=== PATIENT | female | born 1945 | race Caucasian/White ===

== ENCOUNTER 2021-07-21 12:39 | Emergency (ER) | payer OTHER ==
[~2021-07-21] VITALS: Ht 162.6 cm; Wt 72.6 kg
[2021-07-21] MEDS ORDERED: NAPROSYN500 M1 PO (16:29)
[2021-07-21 17:01] VITALS: BP 150/64
== END 2021-07-21 17:01 | disposition home or self-care (01) ==
LOC: ER 12:39
DX: M25.462 Effusion, left knee (principal); I10 Essential (primary) hypertension; Z88.0 Allergy status to penicillin

== ENCOUNTER → 2021-07-31 | Outpatient (CLI) | payer OTHER ==
[~2021-07-31] MED LIST: ALENDRONATE SOD70 MG PO; ASA81BEC PO; BENTYL 10 MG CA10 M1 PO; DILT-XR120 MG PO; LOSARTAN POTAS100 MG PO; NAPROSYN500 M1 PO; NEBIVOLOL HCL20 MG PO; SINGULAIR 10 MG10 M1 PO; ZOCOR 20 MG TAB20 M1 PO
[2021-07-31 12:11] LABS: URINE BILIRUBIN NEGATIVE (Negative); URINE BLOOD 1+ (Negative); URINE CLARITY CLEAR; URINE COLOR YELLOW; URINE GLUCOSE-RANDOM* NEGATIVE (Negative); URINE KETONES NEGATIVE (Negative); URINE LEUKOCYTES-REFLEX NEGATIVE (Negative); URINE NITRITE-REFLEX NEGATIVE (Negative); URINE PROTEIN (DIPSTICK) NEGATIVE (Negative); URINE SPECIFIC GRAVITY <= 1.005 (1.005-1.035); URINE UROBILINOGEN 0.2 E.U./dl (0.2-1.0)
[2021-07-31 12:22] LABS: BACTERIA-REFLEX 1-9 Few /HPF (None Seen); CASTS None Seen /LPF (None Seen); CRYSTALS None Seen /LPF (None Seen); SQUAMOUS 0-3 Few /LPF (0-3); URINE RBC 1-2 Rare /HPF (NONE SEEN); URINE WBC-REFLEX 0-5 Rare /HPF (0-5)
[2021-07-31 12:23] LABS: ALBUMIN 3.6 g/dL (3.4-5.0); CREATININE 1.3 mg/dL (0.6-1.0)
[2021-07-31 12:24] LABS: HEMATOCRIT 37.6 % (37.0-47.0); HEMOGLOBIN 12.7 gm/dL (12.0-15.0); MCH 30.1 pg (26.0-34.0); MCHC 33.7 g/dL (28.0-37.0); MCV 89.3 fL (80.0-100.0); RBC 4.21 mil/uL (4.20-5.00); RDW 13.9 % (10.5-14.5); WBC 9.8 thou/uL (4.0-11.0)
[2021-07-31 12:25] LABS: PROTIME 10.9 Seconds (10.5-12.1)
--- NOTE | 2021-07-31 16:11 | EKG ---
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
== END ==
LOC: PAC 11:24
PROVIDERS: ATTEND Orthopaedic Surgery
DX: Z01.812 Encounter for preprocedural laboratory examination (principal); Z01.810 Encounter for preprocedural cardiovascular examination; M17.12 Unilateral primary osteoarthritis, left knee

== ENCOUNTER 2021-08-14 10:15 | Inpatient (IN) | payer OTHER ==
[~2021-08-14] VITALS: Ht 152.4 cm; Wt 77.1 kg
--- NOTE | ~2021-08-14 | O ---
[facility] [place] [address] OPERATIVE REPORT Name: JOVITA BUENO Room #: 440-P REG [facility]..#: [id number] Admission: 08/14/21 Attend Phys: Edinson Arreola MD Discharge: Date of : 49 Report #: [id number] THIS REPORT FOR: cc: FAM - Family physician unknown FAM - Family physician unknown Edinson Arreola MD ~ DATE OF SERVICE: 08/14/2021 PREOPERATIVE DIAGNOSIS: Left knee osteoarthritis. POSTOPERATIVE DIAGNOSIS: Left knee osteoarthritis. PROCEDURE: Left total knee arthroplasty using Navio robotic assistance. SURGEON: Edinson Arreola MD FIRE CONTROL OFFICER: Zoraida Skelton PA-C INDICATION FOR FIRE CONTROL OFFICER: Throughout the case, extensive retraction, manipulation of the knee was required. This was afforded to me by my topographical field assistant. ANESTHESIA: LMA with adductor canal block. IMPLANTS: [employer] size 5 Journey II BCS cobalt chrome femur, size 4 tibia, size 11 polyethylene and size 32 patella. TOURNIQUET TIME: 53 minutes. ESTIMATED BLOOD LOSS: 25 mL. COMPLICATIONS: None. SPECIMENS: None. CONDITION UPON LEAVING THE OR: Stable. INDICATIONS FOR PROCEDURE: The patient is a 75-year-old female with left knee osteoarthritis. She had failed conservative measures for this, and after discussion with her, she elected for left total knee arthroplasty. DESCRIPTION OF PROCEDURE: Risks, benefits, alternatives and complications were discussed in detail with the patient including but not limited to risk of anesthesia, risk of damage to nerves, arteries, blood vessels, risk for infection, bleeding, risk for continued knee pain and need for reoperation. Informed consent was obtained from the patient. The left knee was appropriately marked in the preoperative holding area. IV clindamycin was given for [facility] [address] [place] [address] OPERATIVE REPORT Name: ZACKARYROJASJOVITA E Room #: 440-P REG [facility]..#: [id number] Admission: 08/14/21 Attend Phys: Edinson Arreola MD Discharge: Date of : 49 Report #: [id number] preoperative antibiotics. She was brought to the operating room and placed in a supine position on the operating table. LMA anesthesia was induced without complication. A tourniquet was placed on the left thigh. The left lower extremity was prepped and draped in a normal sterile fashion. A timeout was performed, properly identifying the patient and procedure as well as the instrumentation and implants. All in the operating room in agreement. The left lower extremity was exsanguinated and the tourniquet inflated. Tourniquet time was 53 minutes ___ to the knee was made with 10 blade through the skin. Dissection was taken down sharply to the fascia and deep flaps were developed medially and laterally. A fresh 10 blade was used to make a medial parapatellar arthrotomy and the knee was inspected. There was severe patellofemoral compartment osteoarthritis with significant erosion of the patellar bone. There was moderate medial and lateral compartment osteoarthritis. ACL and PCL were removed sharply. Reference pins were placed in the femur and the tibia. The knee was then digitally mapped using the drop.io robotic system. Intraoperative plan was made. We sized the size 4 tibia, the size 5 femur and a 10 spacer. After acceptance of the intraoperative plan, a distal femoral cut was made with Navio bur. Distal femoral cutting block was pinned in place and chamfer cuts were made. Attention was turned to the tibia. Remainder of the menisci removed with Bovie cautery. Tibial resection guide was pinned in place using Navio for placement and tibial resection was made. Flexion and extension gaps were checked and found to have good balance in flexion and extension both medially and laterally. Tibia was sized, found to be a size 4. A size 4 tibial trial was placed, pinned and punched. A size 5 femoral trial was placed and box cut was made. This was then trialed with a size 10, up to a size 11 polyethylene and size 11 polyethylene demonstrated 1-2 mm of laxity medially and laterally throughout range of motion of the knee. After this, the patella was measured and was only 14 mm thick. We resected 4 mm of thickness of the patella, to leave an 11 mm thick of the patella. This was sized, found to be a size 32. Size 32 patellar trial button was placed. The knee was taken through range of motion, found to be stable, found to have good patellar tracking. Trial components were removed. Bone ends were thoroughly irrigated with normal saline. A final size 4 tibia, size 5 Journey II BCS cobalt chrome femur and a size 32 patella were cemented in place using standard cementation techniques. While the cement cured, a periarticular injection consisting of morphine, ropivacaine, epinephrine and Toradol was placed around the knee joint capsule. After the cement cured, the tourniquet was deflated. Hemostasis was obtained with Bovie cautery. Final size 11 polyethylene was placed. A gram of vancomycin was placed deep in the joint. Fascia was closed with 0 Vicryl. Skin was closed with 2-0 Vicryl, skin staple and a JUAN dressing was applied. The [address] [address] OPERATIVE REPORT Name: JOVITA BUENO Room #: 440-P REG [facility].#: [id number] Admission: 08/14/21 Attend Phys: Edinson Arreola MD Discharge: Date of : 49 Report #: [id number] patient tolerated this procedure well and went to recovery room under care of anesthesia postoperatively. By: [id number] Edinson Arreola MD /nt
[2021-08-14 12:24] VITALS: BP 131/59
[2021-08-14 16:14] VITALS: BP 137/70
[2021-08-14 19:53] VITALS: BP 150/83
--- NOTE | 2021-08-15 06:24 | NUR ---
RECEIVED CARE OF THIS PATIENT AT 1900. PATIENT ALERT AND ORIENTED X4. ON BEDREST NOW D/T LATE SURGERY. DENIES PAIN, DID RECEIVE SCHEDULED PAIN MED. JUAN DRESSING ON L KNEE D/I WITH POLAR ICE, TEDS AND SCD'S. IV PATENT WITH FLUIDS INFUSING. SLEPT OFF AND ON DURING NIGHT.
[2021-08-15 08:49] VITALS: BP 150/83
[2021-08-15 09:28] VITALS: BP 138/62
--- NOTE | 2021-08-15 15:07 | NUR ---
Consult rec'd for snf stay [facility]. Pt was seen by therapy and did well but anxious about being at home with limited support. She is from [place], [place] . HH and [facility]er offered [place] [facility];however son Dylan is here this afternoon at bedside and feels she is not safe to be at home in [place] with no support. They are interested in SNF stay and have reached out to [facility]. Referral faxed and called to Taryn at [facility]. They are open for a second choice so referral faxed and called to [facility] as well and [facility]. Will ask for OT eval also.
[2021-08-15] MEDS ORDERED: MS CONTIN15 MG PO (15:56)
[2021-08-15] MEDS ORDERED: TRI-BUFFERED A325 M1 PO (15:58)
[2021-08-15 20:35] VITALS: BP 142/63
--- NOTE | 2021-08-16 03:10 | NUR ---
Pt. rested quietly at intervals during the night when checked on during frequent rounds. Scheduled morphine providing pain relief. No c/o nausea. Bed alarm is on.
[2021-08-16 07:34] VITALS: BP 129/59
--- NOTE | 2021-08-16 09:50 | NUR ---
ASSUMED PT CARE THIS AM. PT IS ALERT & ORIENTED X4. PT IS UP WITH ASSIST X1 WITH WALKER TO THE BATHROOM. PT HAS JUAN DRESSING, POLAR PACK, BILATERAL VÍCTOR HOSES, SCD. PT IS ON ROOM AIR. PHYSICAL THERAPY WAS WORKING WITH PATIENT THIS AM AND DID WELL. PT WANTS TO GO TO REHAB AND INFORMED PHYSICAL THERAPY. GIVEN SCHEDULED MEDICATIONS THIS AM WITHOUT DIFFICULTIES. WILL CONTINUE TO MONITOR PT. FOLLOW POC.
--- NOTE | 2021-08-16 15:33 | NUR ---
Spoke with [facility] they are able to accept patient but no bed avail until tomorrow. Chart copied. Orders faxed. Updated RN practioner with ortho. victoriano van for 1400 08/17/20. Updated RN and patient. patient will alert her son.
[2021-08-16 15:34] VITALS: BP 127/63
[2021-08-16 20:50] VITALS: BP 148/66
--- NOTE | 2021-08-17 02:50 | NUR ---
PT OBSERVED LYING DOWN ON HER BED WITH HER EYES CLOSED AT START OF SHIFT.PT C/O PAIN TO HER L KNEE,BUT REF TO TAKE THE [place] MORPHINE.PT STATED THAT THE MEDICATION MAKES HER SICK SO REQUESTED FOR TYLENOL INSTEAD.JUAN DRSG DRY AND INTACT WITH POLAR PACK,VÍCTOR HOSE ANDSCD IN PLACE.PT LOOKING FORWARD TO BE DC'D LATER TODAY.CALL LIGHT WITHIN REACH.
[2021-08-17 07:43] VITALS: BP 151/76
--- NOTE | 2021-08-17 11:17 | NUR ---
Patient is A&OX4 and very pleasant. 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 Patient has a poor appetite but is increasing. Patients pain level is controlled. Refuses morphine d/t suspected ADR & did well with PRN Tylenol PO. Polar pack, VÍCTOR hose, JUAN dressing (CDI) all intact and in place. Patient denies needs and is ready for transfer to [facility].
== END 2021-08-17 14:28 | DRG 470 ==
LOC: ADMC → OR 10:15 → EDSTATUS 10:25 → OR 13:26 → ADMC 14:24 → 4S 16:02 → OR 16:03 → 4S 16:03
PROVIDERS: ADMIT Orthopaedic Surgery; ATTEND Orthopaedic Surgery
PROC: 0SRD0J9 Replacement of Left Knee Joint with Synthetic Substitute, Cemented, Open Approach (ICD-10-PCS; principal; 2021-08-14)
PROC: 3E0T3BZ Introduction of Anesthetic Agent into Peripheral Nerves and Plexi, Percutaneous Approach (ICD-10-PCS; principal; 2021-08-14)
PROC: 8E0Y0CZ Robotic Assisted Procedure of Lower Extremity, Open Approach (ICD-10-PCS; principal; 2021-08-14)
DX: M17.12 Unilateral primary osteoarthritis, left knee (principal); Z20.822 Contact with and (suspected) exposure to COVID-19; Z79.82 Long term (current) use of aspirin; Z79.899 Other long term (current) drug therapy; Z88.0 Allergy status to penicillin
CPT/HCPCS: 10102; 50010; 50101; 50415; 50954; 51130; 51225; 51412; 53000; 53078; 56527; 56528; 57095; 57103; 57110; 57127; 57179; 58239; 59024; 62110; 62900; 64039; 70005